=== PATIENT | male | born 1975 | race American Indian/Alaskan Native ===

== ENCOUNTER 2020-05-28 10:31 | Day surgery (SDC) | payer BC ==
[~2020-05-28 10:31] MED LIST: SODIUM CHLORIDE 0.9% 1000 ML 1,000 ML IV SCH
--- NOTE | 2020-05-28 12:16 | Anesthesia Day of Surgery ---
Anesthesia Day of Surgery - Day of Surgery Patient Examined: Yes Patient H&P Reviewed: Yes Patient is NPO: Yes
--- NOTE | 2020-05-28 12:18 | Anesthesia Consultation ---
Anesthesia Consult and Med Hx Date of service: 05/28/20 - Airway Anesthetic Teeth Evaluation: Good ROM Head & Neck: Adequate Mental/Hyoid Distance: Adequate Mallampati Class: Class II Intubation Access Assessment: Good - Pre-Operative Health Status ASA Pre-Surgery Classification: ASA3 Proposed Anesthetic Plan: MAC - Pulmonary Hx Respiratory Symptoms: No (+2FS) Hx Sleep Apnea: Yes - Cardiovascular System Hx Hypertension: Yes - Endocrine Hx Renal Disease: No Hx Liver Disease: No Hx Thyroid Disease: No - Hematic Hx Sickle Cell Disease: No - Other Systems Hx Obesity: Yes
[2020-05-28] MEDS ORDERED: propofoL 200 MG/20 ML VIAL IV ONE ×3 (12:27→12:51)
[2020-05-28] MEDS ORDERED: LIDOCAINE MPF (2%) 20 MG/1 ML VIAL 5 ML ONE (12:27)
--- NOTE | 2020-05-28 13:04 | Procedure Note ---
Date of procedure: 05/28/20 Pre-op diagnosis: Colon Polyp Screening/F/H/O colon Cancer/H/o colon Polyp (Tubular Adenoma Post-op diagnosis: other (Ascending Colon Popyp (removed Hot Snare polypectomy) and Proximal Transverse colon Polyp (cold Snare Polypectomy)/ No Diverticuli/ Minor,Internal Hemorrhoid) Procedure: Colonoscopy with Hot and Cold Snare Polypectomy and cold biopsy Anesthesia: MAC Surgeon: KATHRYN TOPETE Estimated blood loss: minimal Pathology: list Specimen disposition: to lab Condition: stable Disposition: same day (Avoid aspirin and NSAID for 5 days; otherwise resume home medication and follow up in 1 to2 weeks ([phone]).)
--- NOTE | 2020-05-28 13:47 | Post Anesthesia Evaluation ---
- Post Anesthesia Evaluation Patient Participated: Yes Airway Patent: Yes Stable Respiratory Function: Yes Nausea/Vomiting: No Temp > 96.8F: Yes Pain Manageable: Yes Adequeate Hydration: Yes Anesthesia Complications: No Block Receding Appropriately: Not Applicable Patient on Ventilator: No
[2020-05-28 16:17] VITALS: BP 138/66
--- NOTE | 2020-05-28 17:24 | Operative Report ---
PROCEDURE: Colonoscopy with hot and cold snare polypectomy and cold biopsy. INDICATIONS: This is a 44-year-old slightly obese -[place] gentleman with a strong family history of cancer. The patient's father had colon cancer. Grandparents have had colon cancer on both sides. He had a colon polyp that was removed, which was of the tubular adenoma type from the descending colon about little over 2 years ago. Repeat colonoscopy was done to make sure there was not any recurrence of any polyps. DESCRIPTION OF PROCEDURE: The procedure was done after getting informed consent with MAC anesthesia. Initial rectal exam was unremarkable. Instrument was passed through the rectum onto the cecum, which was identified with ileocecal valve and the appendiceal orifice. The cecum was also visualized on the retroverted view. On the retroverted view, there was a 12-14 mm polyp that was sessile that was noted in the ascending colon. This was removed by hot snare polypectomy and retrieved. The remaining part of the cecum and the ascending colon showed normal mucosa. In the proximal transverse colon, there was a 10 mm polyp that was removed by cold snare polypectomy and retrieved and the edges were trimmed using the cold biopsy forceps. The remaining part of the transverse colon, the descending colon, and the sigmoid showed normal mucosa and the rectum showed some minor internal hemorrhoid on the retroverted view. ASSESSMENT: Colon polyp screening, colon polyps involving the ascending colon and the proximal transverse colon, minor internal hemorrhoid. There was minimal bleeding associated with the procedure. No complications associated with the procedure. ASSESSMENT: Colon polyp screening, prior history of colon polyp with a tubular adenoma involving the descending colon, family history of cancer. At this time, the patient had colon polyps involving the ascending colon as well as the proximal transverse colon and minor internal hemorrhoid. PLAN: To have the patient avoid aspirin and aspirin-related products for the next few days. Otherwise, resume home medication. Follow up in the office in 1-2 weeks' time. JOB# [id number] SAMMY/NTS
== END 2020-05-28 10:32 | disposition home or self-care (01) ==
LOC: GIO 10:31
DX: Z12.11 Encounter for screening for malignant neoplasm of colon (principal); K64.8 Other hemorrhoids; D12.3 Benign neoplasm of transverse colon; D12.2 Benign neoplasm of ascending colon; E78.00 Pure hypercholesterolemia, unspecified; I10 Essential (primary) hypertension; G47.30 Sleep apnea, unspecified; E66.9 Obesity, unspecified; Z80.0 Family history of malignant neoplasm of digestive organs; Z86.010 Personal history of colon polyps; Z79.899 Other long term (current) drug therapy; Z68.39 Body mass index [BMI] 39.0-39.9, adult
CPT/HCPCS: 45385; 88305; J2704; J7030

== ENCOUNTER 2021-06-10 07:05 | Day surgery (SDC) | payer BC ==
[~2021-06-10 07:05] MED LIST changes: +WATER FOR IRRIG STERILE 1,000 ML BOTTLE ONE; +WATER FOR IRRIG STERILE 250 ML BOTTLE IR ONE
[2021-06-10] MEDS ORDERED: WATER FOR IRRIG STERILE 250 ML BOTTLE IR ONE (07:32)
--- NOTE | 2021-06-10 07:47 | Anesthesia Day of Surgery ---
Anesthesia Day of Surgery - Day of Surgery Patient Examined: Yes Patient H&P Reviewed: Yes Patient is NPO: Yes
--- NOTE | 2021-06-10 07:48 | Anesthesia Consultation ---
Anesthesia Consult and Med Hx Date of service: 06/10/21 - Airway Anesthetic Teeth Evaluation: Good ROM Head & Neck: Adequate Mental/Hyoid Distance: Adequate Mallampati Class: Class I Intubation Access Assessment: Good - Pre-Operative Health Status ASA Pre-Surgery Classification: ASA3 Proposed Anesthetic Plan: MAC - Pulmonary Hx Respiratory Symptoms: No (+2FS) Hx Sleep Apnea: Yes - Cardiovascular System Hx Hypertension: Yes - Gastrointestinal Hx Gastroesophageal Reflux Disease: No - Endocrine Hx Renal Disease: No Hx Liver Disease: No Hx Thyroid Disease: No - Hematic Hx Sickle Cell Disease: No - Other Systems Hx Obesity: Yes - Additional Comments Anesthesia Medical History Comments: Was here in 2019
[2021-06-10] MEDS ORDERED: propofoL 200 MG/20 ML VIAL IV ONE ×2 (08:42→08:56)
[2021-06-10] MEDS ORDERED: LIDOCAINE MPF (2%) 20 MG/1 ML VIAL 5 ML ONE (08:42)
--- NOTE | 2021-06-10 09:07 | Procedure Note ---
Date of procedure: 06/10/21 Pre-op diagnosis: H/O Colon Polyps/ F/H/O Colon Cancer Post-op diagnosis: other (No Colon Polyps now/ No Diverticular Disease or Colitis noted/ Minor,Internal Hemorrhoids) Procedure: Colonoscopy Anesthesia: MAC Surgeon: KATHRYN TOPETE Estimated blood loss: none Pathology: none Condition: stable Disposition: same day (Resume previous medication ad F?U in 1 to 3 weeks ([phone]).)
--- NOTE | 2021-06-10 09:53 | Operative Report ---
DATE OF SURGERY: 05/28/2020 PROCEDURE: Colonoscopy. INDICATIONS: This is a 44-year-old -[place] gentleman with a strong family history of colon cancer and a prior history of colon polyp. He has had a colonoscopy done in the past with removal of tubular adenoma. Colonoscopy was done to make sure that there was not any recurrence of any polyps. DESCRIPTION OF PROCEDURE: Procedure was done after getting informed consent with MAC anesthesia. Initial rectal examination was unremarkable. The instrument was passed through the rectum onto the cecum, which was identified with ileocecal valve and the appendiceal orifice. Visualization was fair to good. The cecum was also visualized on the retroverted view. No additional pathology was noted. The scope was withdrawn to the hepatic flexure and reintroduced and then subsequently withdrawn. Cecum, ascending colon, transverse colon, descending colon, and sigmoid showed normal mucosa. There was no evidence of any further colon polyps or diverticular disease or evidence of colitis and the rectum showed some minor internal hemorrhoid on the retroverted view. ASSESSMENT: Past history of colon polyps, family history of colon cancer. No colon polyps noted at present. Minor internal hemorrhoid. PLAN: To have the patient resume home medication and follow up in the office in 1-2 weeks' time. Procedure was done in the GI lab with assistance of the GI lab team, which included the GI nurse, the anesthesia technician and with assistance of Anesthesia. TID: [id number] RECEIPT: [id number] SAMMY/ZEESHAN/VINICIO
[2021-06-10 10:11] VITALS: BP 158/87
== END 2021-06-10 07:06 | disposition home or self-care (01) ==
LOC: GIO 07:05
DX: Z12.11 Encounter for screening for malignant neoplasm of colon (principal); K64.8 Other hemorrhoids; K63.89 Other specified diseases of intestine; I10 Essential (primary) hypertension; G47.30 Sleep apnea, unspecified; E66.9 Obesity, unspecified; E78.00 Pure hypercholesterolemia, unspecified; Z68.34 Body mass index [BMI] 34.0-34.9, adult; Z86.010 Personal history of colon polyps; Z80.0 Family history of malignant neoplasm of digestive organs
CPT/HCPCS: 45378; J2704; J3490; J7030; J7120; Q0162